=== PATIENT | female | born 1960 | race Caucasian/White ===

== ENCOUNTER 2018-07-07 10:48 | Emergency (ER) | payer BC ==
[2018-07-07 11:26] VITALS: BP 162/82
--- NOTE | 2018-07-07 11:27 | UC ---
General HPI - HPI Summary HPI Summary: Yesterday noticed eye redness and itching. Used old contact solution and thought it was from that. Drainage from both eyes b/l. No eye pain. No vision changes. Yesterday vision was fuzzy with contacts in but improved with glasses. No fevers. No URI symptoms. Does not sleep in contacts. PMHx and Meds: reviewed. - History of Current Complaint Chief Complaint: UCEye Stated Complaint: EYE IRRITATION Time Seen by Provider: 07/07/18 11:18 Hx Last Menstrual Period: last week Pain Intensity: 0 - Allergy/Home Medications Allergies/Adverse Reactions: Allergies Allergy/AdvReac Type Severity Reaction Status Date / Time MS Clindamycin [Clindamycin] Allergy Severe hives, Verified 07/07/18 11:04 trouble breathing MS Penicillins [Penicillins] Allergy Severe hives,trouble Verified 07/07/18 11: 04 breathing MS Sulfa Drugs [Sulfa Drugs] Allergy Severe hives, Verified 07/07/18 11:04 trouble breathing cold urticaria Allergy Intermediate hives,trouble Uncoded 07/07/18 11:04 breathing PMH/Surg Hx/FS Hx/Imm Hx - Surgical History Surgical History: Yes Surgery Procedure, Year, and Place: tympanic tube in right ear, tubal ablation - Social History Alcohol Use: None Substance Use Type: None Smoking Status (MU): Never Smoked Tobacco Review of Systems All Other Systems Reviewed And Are Negative: Yes Physical Exam Triage Information Reviewed: Yes Appearance: Well-Appearing Vital Signs: Initial Vital Signs Temp 97.5 F 07/07/18 11:05 Pulse 83 07/07/18 11:05 Resp 16 07/07/18 11:05 BP 0/0 07/07/18 11:05 Pulse Ox 100 07/07/18 11:05 Vital Signs Reviewed: Yes Eyes: Positive: Other: - b/l conjuctival injection, no drainage ENT: Positive: Normal ENT inspection Neck: Positive: Supple Respiratory: Positive: Chest non-tender, Normal breath sounds, No respiratory distress Cardiovascular: Positive: RRR, No Murmur Course/Dx - Course Course Of Treatment: This is a 57 yr old with eye redness and puritis. Dx: Conjunctivitis B/L. Plan. Start Antibiotic eye drops as prescribed. Good handwashing. Dispose of current contacts. Do not use new contacts until infection has cleared. Recheck Blood pressure at home (drug store) and follow up with PCP if it is still elevated - Diagnoses Provider Diagnosis: Conjunctivitis Discharge - Sign-Out/Discharge Documenting (check all that apply): Patient Departure All imaging exams completed and their final reports reviewed: No Studies - Discharge Plan Condition: Good Disposition: HOME Prescriptions: Ciprofloxacin 0.3% OPTH.RENO* [Cipro 0.3% Opth*] 2 drop BOTH EYES TID #1 btl Patient Education Materials: Conjunctivitis (ED) Referrals: Pauly Garcia MD [Primary Care Provider] - Additional Instructions: Start Antibiotic eye drops as prescribed Good handwashing Dispose of current contacts Do not use new contacts until infection has cleared Recheck Blood pressure at home (drug store) and follow up with PCP if it is still elevated - Billing Disposition and Condition Condition: GOOD Disposition: Home
== END 2018-07-07 11:33 | disposition home or self-care (01) ==
LOC: UCEAST 10:48
DX: H10.9 Unspecified conjunctivitis (principal); Z88.0 Allergy status to penicillin; Z88.1 Allergy status to other antibiotic agents; Z88.8 Allergy status to other drugs, medicaments and biological substances
CPT/HCPCS: 99202; G0463